=== PATIENT | female | born 1985 | race American Indian/Alaskan Native ===

== ENCOUNTER 2017-03-09 19:41 | Emergency (ER) | payer SELFPAY ==
[2017-03-09 19:53] VITALS: BP 118/69
== END 2017-03-09 23:50 | disposition left against medical advice (07) ==
LOC: ED 19:41
DX: N93.9 Abnormal uterine and vaginal bleeding, unspecified (principal); Z53.21 Procedure and treatment not carried out due to patient leaving prior to being seen by health care provider